=== PATIENT | male | born 1940 | race Caucasian/White ===

== ENCOUNTER → 2017-09-14 | Outpatient (CLI) | payer MEDICARE, OTHER ==
[~2017-09-14] MED LIST: FLOMAX PO; NORVASC 5 MG TAB5 MG PO
[2017-09-14 14:09] LABS: HEMATOCRIT 36.3 % (42.0-52.0); HEMOGLOBIN 12.4 gm/dL (14.0-18.0)
--- NOTE | 2017-09-14 14:28 | NUR ---
ARRIVED AMBULATORY. LAB DRAWN AND RESULTS EVALUATED. CRITERIA NOT MET FOR THERAPEUTIC PHLEBOTOMY TODAY. PATIENT UPDATED. VOICED UNDERSTANDING AND AGREED. LAB RESULTS FAXED TO ORDERING DOCTOR
== END ==
LOC: M.INFUS 13:48
PROVIDERS: Internal Medicine
DX: E80.1 Porphyria cutanea tarda (principal)

== ENCOUNTER → 2017-10-29 | Outpatient (CLI) | payer MEDICARE, OTHER ==
[2017-10-29 09:00] VITALS: BP 136/71
[2017-10-29 09:09] LABS: HEMATOCRIT 35.9 % (42.0-52.0); HEMOGLOBIN 12.3 gm/dL (14.0-18.0)
--- NOTE | 2017-10-29 10:09 | NUR ---
ARRIVED AMBULATORY WITH . MADE SELF COMFORTABLE. PRE THERAPUTIC PHLEBOTOMY LABS DRAWN AND RESULTS EVALUATED. PER STANDING ORDER NO PHLEBOTOMY NEED TODAY. PT UPDATED. VOICED UNDERSTANDING AND AGREED. DENIES NEEDS AT DISCHARGE.
== END ==
LOC: M.INFUS 00:40
PROVIDERS: Internal Medicine
DX: E80.1 Porphyria cutanea tarda (principal)

== ENCOUNTER → 2017-12-08 | Outpatient (CLI) | payer MEDICARE, OTHER ==
[2017-12-08 08:40] LABS: HEMATOCRIT 36.5 % (42.0-52.0); HEMOGLOBIN 12.5 gm/dL (14.0-18.0)
--- NOTE | 2017-12-08 14:57 | NUR ---
ARRIVED AMBULATORY. MADE SELF COMFORTABLE IN RECLINER. PRE PHLEBOTOMY LABS DRAWN AND RESULTS EVALUATED. NO NEED FOR THERAPUTIC PHLEBOTOMY. PT UPDATED. VOICED UNDERSTANDING AND AGREED. DENEIS NEEDS AT DISCHARGE.
== END ==
LOC: M.INFUS 12-07 08:30
PROVIDERS: Internal Medicine
DX: E80.1 Porphyria cutanea tarda (principal)

== ENCOUNTER → 2018-01-26 | Outpatient (CLI) | payer MEDICARE, OTHER ==
[2018-01-26 09:05] LABS: HEMATOCRIT 34.9 % (42.0-52.0); HEMOGLOBIN 11.9 gm/dL (14.0-18.0)
--- NOTE | 2018-01-26 12:57 | NUR ---
ARRIVED AMBULATORY. MADE SELF COMFORTABLE IN RELCINER. PRE THERAPUTIC PHLEBOTOMY LABS DRAWN AND RESULTS REVIEWED. PT DOES NOT MEET CRITERIA FOR PHLEBOTOMY TODAY. PT UPDATED. VOICED UNDERSTANDING AND AGREED.
== END ==
LOC: M.INFUS 08:46
PROVIDERS: Internal Medicine
DX: E80.1 Porphyria cutanea tarda (principal)

== ENCOUNTER → 2018-03-17 | Outpatient (CLI) | payer MEDICARE, OTHER ==
--- NOTE | 2018-03-17 16:25 | NUR ---
ARRIVED AMBULATORY. MADE SELF COMFORTABLE IN RELCINER. MONTHLY LABS DRAWN. PT DOES NOT MEET CRITERIA FOR THERAPUTIC PHLEBOTOMY. PT UPDATED. VOICED UNDERSTANDING AND AGREED.
== END ==
LOC: M.INFUS 03-16 09:00
DX: E80.1 Porphyria cutanea tarda (principal)

== ENCOUNTER → 2018-05-06 | Outpatient (CLI) | payer MEDICARE, OTHER ==
[2018-05-06 08:38] VITALS: BP 142/68
[2018-05-06 08:46] LABS: HEMATOCRIT 34.9 % (42.0-52.0); HEMOGLOBIN 11.7 gm/dL (14.0-18.0)
--- NOTE | 2018-05-06 09:37 | NUR ---
ARRIVED AMBULATORY. MADE SELF COMFORTABLE IN RECLINER. LABS DRAWN FROM RIGHT AC BY RN. LAB RESULTS EVALUATED AND NO NEED AT THIS TIME FOR THERAPUTIC PHLEBOTOMY. PT UPDATED, VOICED UNDERSTANDING AND AGREED. DENIES NEEDS AT DISCHARGE.
== END ==
LOC: M.INFUS 05-05 09:00
PROVIDERS: Internal Medicine
DX: E80.1 Porphyria cutanea tarda (principal)

== ENCOUNTER → 2018-06-22 | Outpatient (CLI) | payer MEDICARE, OTHER ==
[2018-06-22 09:32] LABS: HEMOGLOBIN 10.4 gm/dL (14.0-18.0)
--- NOTE | 2018-06-22 14:11 | NUR ---
ARRIVED AMBULATORY. MADE SELF COMFORTABLE IN RECLINER. LABS DRAWN AND RESULTS EVALUATED AND CRITERIA NOT MET FOR THERAPUTIC PHLEBOTOMY. PT UPDATED AND VOICED UNDERSTANDING AND AGREED. DENIES NEEDS AT DISCHARGE.
== END ==
LOC: M.INFUS 08:35
PROVIDERS: Internal Medicine
DX: E80.1 Porphyria cutanea tarda (principal)